=== PATIENT | male | born 1970 | race Caucasian/White ===

== ENCOUNTER 2017-10-08 05:55 | Day surgery (SDC) | payer OTHER ==
[~2017-10-08] VITALS: Ht 195.6 cm; Wt 113.4 kg
[~2017-10-08 05:55] MED LIST: OTEZLA30 MG PO
--- NOTE | 2017-10-08 08:31 | NUR ---
10/08/17 0831 Monika Quezada 0819 PT ARRIVE DWITH ORAL AIRWAY IN PLACE ON 10L VIA MASK. CHIN THRUST NEEDED OFF AND ON TO MAINTAIN AIRWAY. 0830 PT LIFTED HEAD SLIGHTLY TO PAINFUL STIMULI. ORAL AIRWAY REMAINS IN PLACE. RESP EVEN AND UNLABORED.
--- NOTE | 2017-10-08 09:17 | NUR ---
PT ARRIVES TO DS RM 5 FROM PACU AWAKE AND ALERT. PT PROVIDED ICED WATER AND CRACKERS AND OFFERED JELLO OR PUDDING. VSS. PT CALLED DS UNIT AND NOTIFIED OF PT STATUS AND WILL ARRIVE SOON. NO C/O AT THIS TIME, WILL CONTINUE TO MONITOR.
--- NOTE | 2017-10-08 09:52 | NUR ---
PT ALERT, ORIENTED AND SUPPORTED BY HIS KRISTIAN. BOTH PLEASANT, SEEM TO BE PREPARED AND HAD FEW QUESTIONS. PT REQUESTED PRAYER, WILL FOLLOW NEEDED
--- NOTE | 2017-10-08 10:09 | NUR ---
PT ASLEEP UPON ARRIVAL, SNORING. PT O2 SAT 94-100% WITH UNLABORED RR. PT RESPONDS TO VOICE COMMANDS, BUT IS DROWSY. CALL LIGHT ON PT LAP, SCD'S IN PLACE. WILL CONTINUE TO MONITOR.
[2017-10-08] MEDS ORDERED: NORCO 5-325 TA1 EACH PO (10:16)
--- NOTE | 2017-10-08 10:24 | OR ---
[facility] [address], [place] [address] Signed DATE OF OPERATION: 10/08/2017 SURGEON: Drake Bal MD PREOPERATIVE DIAGNOSIS: Left posterior cervical cyst (3-5 mm). POSTOPERATIVE DIAGNOSIS: Left posterior cervical cyst (3-5 mm). PROCEDURE: Excision of left posterior cervical cyst. ESTIMATED BLOOD LOSS: None. INDICATIONS: Dionicio is a 47-year-old gentleman who developed a large cyst on the posterior aspect of his left neck. It had been there for several weeks. It was at least the size of a golf ball. It finally broke open one night and blood all over his pillow. He went to the shower and squeezed that out. By the time he came to see me, he said it was half the size. It was at least a couple of centimeters when I saw him in the office. There was a black scab over the center. I explained to Dionicio and his , we would let that settle down some more and we would schedule him for surgery here in a week or two and excise that cyst fully. They understand there is a cyst wall involved and nonetheless he removes that he has a very high chance of recurrence. I explained to them the nature of the elliptical incision required to remove the lesion. They understand there is risk to that surgery including, but not limited to bleeding, infection, scarring, change in contour of the skin as well as recurrent cyst in the same or other locations. He had expressed understanding and wished to proceed. PROCEDURE NOTE: I met with Dionicio and his in our preop area. We both able to easily identify the area of the cyst. We could see where the skin had healed in the center and where the scab had been previously, and then just medial to that, I could feel the cyst underneath the skin. It was markedly improved down to 3-5 mm. The fat was extremely anxious about having surgery, so we did take some Xanax before he came today. That helped him quite a bit. We marked the area appropriately and after this, Dionicio was taken into the operating room and placed in the right lateral decubitus position under an LMA general anesthesia. Appropriate padding and monitoring were placed. He was then prepped and draped in the Electronically Signed By: DRAKE BAL MD 10/08/17 1024 PATIENT NAME: DIONICIO DENISE OPERATIVE REPORT DATE OF : 68 REPORT #: [id number] PHYSICIAN: DRAKE BAL MD PCP: PRIMO LIZARRAGA MD REPORT IS CONFIDENTIAL AND NOT TO BE RELEASED WITHOUT AUTHORIZATION [facility] [address], [place] [address] Signed usual sterile fashion. He was given preoperative antibiotics along with subcutaneous heparin. SCDs were utilized. After this, an elliptical incision was developed sharply around the lesion transversely and carried down around the lesion with the help of the cautery. The entire cyst was passed off the field to the pathology department. The wound was then infiltrated with local anesthetic. The wound was irrigated and suctioned out until clear. We closed the dermis with interrupted 3-0 subcuticular Monocryl sutures. The skin edges were closed with a running 6-0 fast absorbing plain gut suture. Dry gauze and tape were then applied. Dionicio was then rotated into the supine position and transferred over to his hospital bed. He was weaned from his anesthesia, extubated in the OR, and taken to recovery room in stable condition. Drake Bal MD ALB/MODL /[id number] cc: MD Drake Cheng MD Copies: PRIMO LIZARRAGA MD, ANDREW L MD ~ Electronically Signed By: DRAKE BAL MD 10/08/17 1024 PATIENT NAME: DIONICIO DENISE OPERATIVE REPORT DATE OF : 68 REPORT #: [id number] PHYSICIAN: DRAKE BAL MD PCP: PRIMO LIZARRAGA MD REPORT IS CONFIDENTIAL AND NOT TO BE RELEASED WITHOUT AUTHORIZATION
--- NOTE | 2017-10-08 11:53 | NUR ---
LE 1100: SPOUSE ARRIVES TO DS RM 5 WITH TWO CHILDREN. PT STILL DROWSY, FAMILY GOES TO [place] FOR LUNCH. 1120: FAMILY BACK IN PT ROOM. PT AWAKE AND ALERT. PT AMBULATES WELL TO BR WITH RN ASSIST. PT ABLE TO VOID QS CONCENTRATED URINE. PT EATS 2 PUDDING CUPS AND CRACKERS WITH NO PROBLEM. DC CRITERIA MET. IV REMOVED. PT GIVEN DC INSTRUCTIONS IN PRESENCE OF SPOUSE AND SMALL CHILDREN. ALL QUESTIONS ANSWERED. MEDICATION SCRIPT GIVEN TO SPOUSE. PT SCORES ABOVE 3 ON AMBREEN SCALE, AMBREEN INFORMATIONAL PAPER FAXED TO PRIMO LIZARRAGA MD AT [facility]. COPY PROVIDED IN PT PACKET. PT DC'S VIA WC WITH FAMILY.
== END 2017-10-08 11:50 | disposition home or self-care (01) ==
LOC: DS 05:55
PROVIDERS: Colon & Rectal Surgery
PROC: 0HB4XZZ Excision of Neck Skin, External Approach (ICD-10-PCS; principal; 2017-10-08 06:45)
DX: L72.0 Epidermal cyst (principal); E78.00 Pure hypercholesterolemia, unspecified; L40.50 Arthropathic psoriasis, unspecified; Z79.899 Other long term (current) drug therapy; Z88.0 Allergy status to penicillin; Z87.891 Personal history of nicotine dependence
CPT/HCPCS: 00300; J0330; J1100; J1644; J1885; J2250; J2405; J2704; J2765; J3010; J3490; J7120